=== PATIENT | male | born 1990 | race Caucasian/White ===

== ENCOUNTER 2017-09-11 20:25 | Emergency (ER) | payer OTHER ==
[~2017-09-11] VITALS: Ht 170.2 cm; Wt 81.6 kg
[2017-09-11 20:27] VITALS: Ht 170.2 cm; Wt 81.6 kg
[2017-09-11 23:10] VITALS: BP 129/78
== END 2017-09-11 23:11 | disposition home or self-care (01) ==
LOC: ED 20:25
DX: S61.451A Open bite of right hand, initial encounter (principal); W54.0XXA Bitten by dog, initial encounter; Y93.89 Activity, other specified; Y92.89 Other specified places as the place of occurrence of the external cause; Y99.8 Other external cause status
CPT/HCPCS: 90715